=== PATIENT | female | born 1955 | race Caucasian/White ===

== ENCOUNTER 2023-03-19 07:34 | Outpatient (CLI) | payer MEDICARE ==
--- NOTE | 2023-03-20 13:00 | Ultrasound Report ---
LIMITED ULTRASOUND OF LEFT BREAST: 03/19/2023 CLINICAL: Patient returns today to evaluate a focal asymmetry in the left breast. Comparison is made to exams dated: 03/19/2023 mammogram - [facility], 09/18/2021 mamm ogram, 09/18/2021 ultrasound, and 02/18/2021 mammogram - [facility]. Color flow ultrasound of the left breast 6 o'clock region was performed. Guerra scale images of the r eal-time examination were reviewed. There is a stable 0.5 cm x 0.5 cm x 0.2 cm oval mass with an indistinct and circumscribed margin in t he left breast at 6 o'clock middle depth 1 cm from the nipple. This oval mass is hypoechoic. This c orrelates as palpated. IMPRESSION: PROBABLY BENIGN The stable 0.5 cm x 0.5 cm x 0.2 cm oval mass in the left breast has a differential diagnosis of a co mplicated cyst, a solid mass, or a lymph node and is probably benign. A follow-up left ultrasound in 6 months is recommended to demonstrate long-term stability. This exam was interpreted at Station ID: [id number]. Electronically Signed By: Chico Serrano M.D. ar/:03/19/2023 20:29:58 Ultrasound BI-RADS: 3 Probably benign BI-RADS CATEGORY: (3) - 3 Ultrasound [id number] 6 month follow-up LATERALITY: (L)
--- NOTE | 2023-03-20 13:00 | Mammography Report ---
BILATERAL DIGITAL DIAGNOSTIC MAMMOGRAM 3D/2D WITH AUGMENTATION: 03/19/2023 CLINICAL: Patient returns for a 12 month follow up of the left breast, due for bilateral exam. Comparison is made to exams dated: 09/18/2021 mammogram, 09/18/2021 ultrasound, and 02/18/2021 mammogr am - [facility]. Both breasts are heterogeneously dense, which may obscure small masses (category c / 51-75% glandular tissue). Bilateral subglandular silicone implants are stable. No significant masses, calcifications, or other findings are seen in either breast. IMPRESSION: INCOMPLETE: NEEDS ADDITIONAL IMAGING EVALUATION There is no abnormality seen in the left breast to correspond with the palpable abnormality and ultra sound finding, however, ultrasound is recommended. Based on the Tyrer Cuzick model (a risk assessment model) the patients lifetime risk is 7.4% and her 10 year risk is 4.4%. According to the ACR, ACS, and NCCN guidelines, an annual breast MRI exam tiffanie g with mammogram is recommended if the patients lifetime risk is 20% or greater. This exam was interpreted at Station ID: [id number]. NOTE: For mammograms, a report in lay terms will be sent to the patient. Approximately 15% of breast malignancies will not be visualized mammographically. In the management of a palpable breast mass, a negative mammogram must not discourage biopsy of a clinically suspicious lesion. Electronically Signed By: Chico [email or web address]/delmi:03/19/2023 20:26:20 ACR BI-RADS Category 0: Incomplete 3340F PARENCHYMAL PATTERN: (D) - The breast(s) demonstrate(s) heterogeneously dense fibroglandular parмария ta. BI-RADS CATEGORY: (0) - 0 Ultrasound [id number] Immediate follow-up LATERALITY: (L)
== END 2023-03-19 07:35 | disposition home or self-care (01) ==
LOC: DI 07:34
PROVIDERS: ATTEND Internal Medicine
DX: N63.25 Unspecified lump in the left breast, overlapping quadrants (principal); R92.333 Mammographic heterogeneous density, bilateral breasts

== ENCOUNTER 2023-03-19 07:36 | Outpatient (CLI) | payer MEDICARE ==
--- NOTE | 2023-03-19 08:13 | CARDIAC PROCEDURE NOTE ---
Stress Test Report Service Date: 03/19/23 Service Time: 08:00 Ordering Provider: Amy Gibbons ARNP Indication for Test: Occasional episodes of non-exertional, primarily nocturnal, chest tightness. Significant Medical History: Gricel reports very good control of longstanding rheumatoid arthritis with Embrel, allowing her to be fully active, walking nearly every day in her neighborhood on a route with hills; she continues to feel well while exercising and does not have exertional chest discomfort, undue shortness of breath or recent loss of stamina. However she does have chest tightness, occurring typically in the evening at rest, with no identified precipitants and no associated shortness of breath, diaphoresis, lightheadedness or nausea/vomiting. She reports that today's study is being done due to her risk factors, primarily CAD in both sides of her family. Cardiac Risk Factors: Positive for family history of CAD in father (age 95) maternal grandfather (in his 50's); hyperlipidemia (though she says mostly elevated HDLc and thus not on preventive rx); >15 yrs of rheumatoid arthritis also a modifying factor; negative for hypertension, diabetes and signficant tobacco smoking history (smoked briefly, quit 1984). Type of Stress Test: ETT with Echocardiography Procedure: -Exercise Treadmill Test- After signing informed consent, the patient underwent echo imaging at rest and then performed treadmill exercise using a Alcides protocol. The patient exercised for 8 minutes 39 seconds and achieved a peak heart rate of 150 (98 percent predicted maximum heart rate for age), and an estimated workload of 10.2 METS. The test was terminated due to fatigue/shortness of breath. Resting heart rate: 57 Peak heart rate: 150 Normal response to exercise. Resting BP: 123/83 Peak BP: 175/70 Normal BP response to exercise. Rhythm during exercise: Sinus rhythm throughout, with rare isolated PVCs (3 recorded). Symptoms: She denied experiencing any chest pressure/tightness/pain. EKG at rest showed normal sinus rhythm and notable for resting elevation in some leads (probable normal early repolarization variant) as well as probable right ventricular conduction delay with rSr' pattern in V1 and evident in terminal component of most other leads. EKG at peak stress showed no ischemia by EKG criteria. In Recovery heart rate and BP rapidly/normally returned towards baseline levels (HR 85, BP 146/69 at 5:02). Echo imaging, performed at rest and with stress, will be reported separately. IMaster MD, was present throughout this treadmill stress study and supervised it in its entirety. Summary: 1) Exercise tolerance significantly above average for age and sex as evidenced by CHASE of -45%. 2) Normal resting EKG. 3) Adequate level of exercise was achieved on this treadmill stress test. 4) Normal BP response to exercise. 5) No ischemic changes by EKG criteria were seen at peak stress. 6) Echo image interpretation reveals normal left ventricular size, wall thickness and systolic function, with appropriate hyperdynamic augmentation of all segments with exercise, indicating no evidence of prior infarct or inducible ischemia. No significant valvular abnormality or elevation of estimated pulmonary artery systolic pressure seen on screening study. See separate report for more details. Conclusions and Recommendations: 1) Gricel demonstrated outstanding exertional tolerance, without any symptom, EKG or echocardiographic evidence of inducible ischemia. 2) She was encouraged to remain active, without apparent need to change her regimen based on these test results.
== END 2023-03-19 07:37 | disposition home or self-care (01) ==
LOC: DI 07:36
PROVIDERS: ATTEND Nurse Practitioner Acute Care
DX: R07.9 Chest pain, unspecified (principal); Z82.49 Family history of ischemic heart disease and other diseases of the circulatory system; E78.5 Hyperlipidemia, unspecified; M06.9 Rheumatoid arthritis, unspecified; Z87.891 Personal history of nicotine dependence; G25.81 Restless legs syndrome; Z13.220 Encounter for screening for lipoid disorders; Z13.29 Encounter for screening for other suspected endocrine disorder; Z13.0 Encounter for screening for diseases of the blood and blood-forming organs and certain disorders involving the immune mechanism
CPT/HCPCS: 36415; 80053; 80061; 82728; 83540; 83721; 84443; 84466; 85025; 93350

== ENCOUNTER 2023-03-19 11:15 | Outpatient (CLI) | payer MEDICARE ==
[2023-03-19 11:26] LABS: BASOPHILS % (AUTO) 0.6 %; EOSINOPHILS # (AUTO) 0.1 10^3/uL (0.0-0.7); HCT - HEMATOCRIT 45.2 % (37.0-47.0); HGB - HEMOGLOBIN 14.5 g/dL (12.0-16.0); LYMPHOCYTES % (AUTO) 43.7 %; MEAN CORPUSCULAR HEMOGLOBIN 29.7 pg (27.0-31.0); MEAN CORPUSCULAR HGB CONC 32.1 g/dL (32.0-36.0); MEAN CORPUSCULAR VOLUME 92.6 fL (81.0-99.0); MEAN PLATELET VOLUME 10.8 fL (7.9-10.8); MONOCYTES # (AUTO) 0.6 10^3/uL (0.0-1.0); MONOCYTES % (AUTO) 11.9 %; NEUTROPHILS # (AUTO) 1.9 10^3/uL (1.5-6.6); NEUTROPHILS % (AUTO) 40.6 %; PLT - PLATELET COUNT 231 10^3/uL (130-450); RED BLOOD COUNT 4.88 10^6/uL (4.20-5.40); RED CELL DISTRIBUTION WIDTH 12.9 % (12.0-15.0); WHITE BLOOD COUNT 4.6 x10^3/uL (4.8-10.8)
[2023-03-19 11:43] LABS: % IRON SATURATION 28 % (20-50); ALBUMIN 4.4 g/dL (3.2-5.5); ALBUMIN/GLOBULIN RATIO 1.3 (1.0-2.2); ALKALINE PHOSPHATASE 54 IU/L (42-121); ALT ALANINE AMINOTRANSFERASE 16 IU/L (10-60); AST ASPARTATE AMINOTRANSFERASE 22 IU/L (10-42); BILIRUBIN,TOTAL 0.4 mg/dL (0.2-1.0); BUN - BLOOD UREA NITROGEN 12 mg/dL (6-20); CALCIUM 9.5 mg/dL (8.5-10.3); CARBON DIOXIDE - CO2 31 mmol/L (21-32); CHLORIDE 101 mmol/L (101-111); CHOL/HDL RATIO 2.3 (<4.4); CHOLESTEROL 210 mg/dL; CREATININE 0.5 mg/dL (0.6-1.3); GFR - MDRD 122 (>89); GLUCOSE 102 mg/dL (74-104); HDL CHOLESTEROL 92 mg/dL; IRON 103 ug/dL (50-212); LDL CHOLESTEROL,CALCULATED 106 mg/dL; LDL/HDL RATIO 1.2 (<4.4); POTASSIUM 3.9 mmol/L (3.5-4.5); SODIUM 137 mmol/L (135-145); TOTAL IRON BINDING CAPACITY 370 ug/dL (250-450); TOTAL PROTEIN 7.8 g/dL (6.4-8.9); TRANSFERRIN 264 mg/dL (203-362); TRIGLYCERIDES 60 mg/dL (48-352); VLDL CHOLESTEROL 12 mg/dL
[2023-03-19 11:56] LABS: THYROID STIMULATING HORMONE 2.49 uIU/mL (0.34-5.60)
[2023-03-19 12:02] LABS: FERRITIN 73.1 ng/mL (11.0-306.8)
== END 2023-03-19 11:16 | disposition home or self-care (01) ==
LOC: LAB 11:15
PROVIDERS: ATTEND Nurse Practitioner Acute Care
DX: G25.81 Restless legs syndrome (principal); Z13.220 Encounter for screening for lipoid disorders; Z13.29 Encounter for screening for other suspected endocrine disorder; Z13.0 Encounter for screening for diseases of the blood and blood-forming organs and certain disorders involving the immune mechanism
CPT/HCPCS: 36415; 80053; 80061; 82728; 83540; 83721; 84443; 84466; 85025

== ENCOUNTER 2023-10-25 14:20 | Outpatient (CLI) | payer MEDICARE ==
--- NOTE | 2023-10-28 08:27 | Ultrasound Report ---
LIMITED ULTRASOUND OF LEFT BREAST: 10/25/2023 CLINICAL: Patient returns for a 6 month follow up of the left breast. Comparison is made to exams dated: 03/19/2023 ultrasound - [facility], 09/18/2021 ult rasound - [facility], 03/19/2023 mammogram - [facility], 09/18/2021 mammogram, and 02/19/20 mammogram - [facility]. Color flow ultrasound of the left breast 6 o'clock region was performed. Guerra scale images of the r eal-time examination were reviewed. There is a stable benign 0.5 cm x 0.5 cm x 0.2 cm oval mass with an indistinct and circumscribed vita in in the left breast at 6 o'clock middle depth 1 cm from the nipple. This oval mass is hypoechoic. This lesion has not significantly changed when compared to prior exams dating back to 09/18/2021, an d is therefore considered benign. IMPRESSION: BENIGN There is no sonographic evidence of malignancy. The stable 0.5 cm x 0.5 cm x 0.2 cm oval mass in the left breast has a differential diagnosis of a co mplicated cyst, a solid mass, or a lymph node and is benign. Return to annual mammogram screening schedule is recommended. Screening mammograms will be due on 03/19/2024. This exam was interpreted at Station ID: [id number]. Electronically Signed By: Chico Serrano M.D. ar/:10/25/2023 21:49:31 letter sent: No_Letter Ultrasound BI-RADS: 2 Benign BI-RADS CATEGORY: (2) - 2 RECOMMENDATION: (ANNUAL) - Recommend routine annual screening mammography. [id number] return to screening LATERALITY: (B)
== END 2023-10-25 14:21 | disposition home or self-care (01) ==
LOC: DI 14:20
PROVIDERS: ATTEND Internal Medicine
DX: N63.25 Unspecified lump in the left breast, overlapping quadrants (principal)